=== PATIENT | female | born 1980 | race African-American/Black ===

== ENCOUNTER 2020-10-18 09:39 | Outpatient (CLI) | payer MEDICARE | END 2020-10-18 09:40 | disposition home or self-care (01) | LOC: DTY/OP 09:39 | PROVIDERS: ATTEND Surgery | DX: E66.9 Obesity, unspecified (principal); E03.9 Hypothyroidism, unspecified; Z68.35 Body mass index [BMI] 35.0-35.9, adult | CPT/HCPCS: 97802 ==